=== PATIENT | female | born 1985 | race Caucasian/White ===

== ENCOUNTER 2022-01-08 22:00 | Emergency (ER) | payer SELFPAY ==
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
[2022-01-08 22:06] VITALS: BP 115/78; BP 118/62; PULSE 89; PULSE 96; RESP 19; TEMP 36.7; O2SAT 100; O2SAT 97; BMI 28.3
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
--- NOTE | 2022-01-08 23:47 | PC.NURSE ---
PT CONTINUES TO GET OOB AND WALK INTO HALLWAY WITH HARD COLLAR ON. PT AGAIN INSTRUCTED SHE MUST GO back to bed and lay flat.
[2022-01-09 00:25] VITALS: BP 106/68; PULSE 96; RESP 14; O2SAT 96
== END 2022-01-09 01:23 | disposition home or self-care (01) ==
PROVIDERS: Emergency Provider Emergency Medicine
DX: S06.0X0A Concussion without loss of consciousness, initial encounter (principal); S13.4XXA Sprain of ligaments of cervical spine, initial encounter; S29.012A Strain of muscle and tendon of back wall of thorax, initial encounter; S39.012A Strain of muscle, fascia and tendon of lower back, initial encounter; V43.62XA Car passenger injured in collision with other type car in traffic accident, initial encounter; Y93.89 Activity, other specified; Y92.410 Unspecified street and highway as the place of occurrence of the external cause; Y99.9 Unspecified external cause status; M50.322 Other cervical disc degeneration at C5-C6 level
CPT/HCPCS: 70450; 72125; 99284